=== PATIENT | male | born 1950 | race Caucasian/White ===

== ENCOUNTER 2017-04-25 21:58 | Observation (INO) | payer BC, MEDICARE, OTHER ==
[~2017-04-25 21:58] MED LIST: ATEN-102 PO; CIPR500T4 PO; FLAG500T PO; IBUP800T23 PO; NEXI40CA PO; PRAV10 PO
[2017-04-25 22:01] VITALS: BP 181/89; PULSE 66; RESP 16; TEMP 97.6; O2SAT 97
[2017-04-25 23:09] VITALS: BP 176/89; PULSE 62; RESP 16; O2SAT 95
[2017-04-25] MEDS ORDERED: ATEN50TA PO (23:15)
[2017-04-25] MEDS ORDERED: NEXI40CA PO (23:15)
[2017-04-25] MEDS ORDERED: IBUP800T23 PO (23:15)
[2017-04-25] MEDS ORDERED: PRAV20TA2 PO (23:15)
[2017-04-26 00:32] LABS: AUTOMATED NEUTROPHIL # 7.7 TH/MM3 (1.8-7.7); BASOPHIL % 0.3 % (0.0-2.0); EOSINOPHIL # 0.1 TH/MM3 (0-0.4); EOSINOPHIL % 0.6 % (0.0-4.0); HEMATOCRIT 43.5 % (39.0-51.0); HEMO FLAGS DIFF FINAL; LYMPH % 15.5 % (9.0-44.0); LYMPHOCYTE # 1.6 TH/MM3 (1.0-4.8); MEAN CELL VOLUME 91.2 FL (80.0-100.0); MEAN CORPUSCULAR HEMOGLOBIN 32.7 PG (27.0-34.0); MEAN CORPUSCULAR HGB CONC 35.8 % (32.0-36.0); MONO % 7.3 % (0.0-8.0); NEUT % 76.3 % (16.0-70.0); PLATELET COUNT 222 TH/MM3 (150-450); RED BLOOD COUNT 4.76 MIL/MM3 (4.50-5.90); RED CELL DISTRIBUTION WIDTH 13.4 % (11.6-17.2); WHITE BLOOD COUNT 10.1 TH/MM3 (4.0-11.0)
[2017-04-26 00:44] LABS: ALKALINE PHOSPHATASE 47 U/L (45-117); TOTAL BILIRUBIN ADULT 1.4 MG/DL (0.2-1.0)
[2017-04-26 00:46] LABS: ALT (GPT) 26 U/L (12-78); ANION GAP 10 MEQ/L (5-15); AST (GOT) 32 U/L (15-37); BICARBONATE 28.1 MEQ/L (21.0-32.0); BLOOD UREA NITROGEN 13 MG/DL (7-18); CHLORIDE 92 MEQ/L (98-107); GLOMERULAR FILTRATION RATE 82 ML/MIN (>89); SODIUM (NA) 130 MEQ/L (136-145)
[2017-04-26 00:47] LABS: POTASSIUM 3.9 MEQ/L (3.5-5.1)
[2017-04-26] MEDS ORDERED: IOHEXOL 350 MG/ML 10 ML VIAL (for RAD DIAG) IV ONE (01:20)
[2017-04-26] MEDS ORDERED: ATENOLOL 50 MG TAB PO ONE (01:30)
--- NOTE | 2017-04-26 01:33 | RADRPT ---
EXAM DATE/TIME: 04/26/2017 01:14 [facility] COMPARISON: CT ABDOMEN & PELVIS W CONTRAST, March 23, 2015, 14:26. INDICATIONS : Right sided abdomen pain with vomiting. IV CONTRAST: 90 cc Omnipaque 350 (iohexol) IV ORAL CONTRAST: No oral contrast ingested. RADIATION DOSE: 10.01 CTDIvol (mGy) MEDICAL HISTORY : Hypertension. Gastroesophageal reflux disease. SURGICAL HISTORY : Inguinal hernia repair. ENCOUNTER: Initial ACUITY: 1 day PAIN SCALE: 6/10 LOCATION: Right abdomen TECHNIQUE: Volumetric scanning of the abdomen and pelvis was performed. Using automated exposure control and ad justment of the mA and/or kV according to patient size, radiation dose was kept as low as reasonably achievable to obtain optimal diagnostic quality images. DICOM format image data is available electro nically for review and comparison. FINDINGS: LOWER LUNGS: The visualized lower lungs are clear. LIVER: Homogeneous density. There is a 8 mm cyst in the left lobe liver which is stable. There is no dilati on of the biliary tree. No calcified gallstones. SPLEEN: Normal size without lesion. PANCREAS: Within normal limits. KIDNEYS: Normal in size and shape. There is no mass, stone or hydronephrosis. ADRENAL GLANDS: Within normal limits. VASCULAR: There is no aortic aneurysm. BOWEL/MESENTERY: The stomach, small bowel, and colon demonstrate no acute abnormality. There is no free intraperitone al air or fluid. The appendix is unremarkable. No inflammatory changes. A few scattered diverticula a re noted along the descending and sigmoid colon. ABDOMINAL WALL: Within normal limits. RETROPERITONEUM: There is no lymphadenopathy. BLADDER: No wall thickening or mass. Urinary bladder is somewhat distended. This is unchanged compared to the prior study. REPRODUCTIVE: The prostate is enlarged measuring 5.4 x 4.3 cm. INGUINAL: There is no lymphadenopathy or hernia. MUSCULOSKELETAL: Within normal limits for patient age. Degenerative type changes. CONCLUSION: 1. Stable 8mm hepatic cyst. 2. Diffuse enlargement of the prostate gland. 3. No acute pathology. Ryan Freitas MD on April 26, 2017 at 1:27 Board Certified Radiologist. This report was verified electronically.
--- NOTE | 2017-04-26 02:22 | PD ---
HPI Chief Complaint: Abdominal Pain Time Seen by Provider: 23:44 Travel History International Travel<30 days: No Contact w/Intl Traveler<30days: No Traveled to known affect area: No History of Present Illness HPI This is a 66-year-old male who is known to Dr. Lamar who presents to the emergency department with right upper quadrant abdominal pain that's been going on for 2 days, intermittent, moderate severity, associated with multiple episodes of vomiting. He denies any fevers or chills. He denies any diarrhea. He has been belching. His last bowel movement was earlier today and was normal. He saw Dr. Newton in the office and Dr. Lamar ordered a right upper quadrant ultrasound which was done at [facility]. It demonstrates a small stone in the gallbladder but no evidence of cholecystitis. His pain has continued throughout today so he came to the emergency department. He has a history of, located diverticulitis for which she was treated by Dr. Newton. He never ended up having surgery. He has had 2 hernia repairs in the past. PFSH Past Medical History Arthritis: Yes Heart Rhythm Problems: No Cancer: Yes (SKIN CA) Cardiovascular Problems: Yes High Cholesterol: Yes Chest Pain: No Congestive Heart Failure: No Diminished Hearing: No Endocrine: No GERD: Yes Genitourinary: No Hypertension: Yes Immune Disorder: No Inguinal Hernia: Yes (REPAIRED) Musculoskeletal: No Neurologic: No Psychiatric: No Reproductive: No Respiratory: No Past Surgical History Abdominal Surgery: Yes (LEFT INGUINAL HERNIA REPAIR- [id number]) Other Surgery: Yes (UMBILICAL HERNIA REPAIR-2008, LEFT FOOT SURGERY) Social History Alcohol Use: No Tobacco Use: No Substance Use: No Allergies-Medications (Allergen,Severity, Reaction): Coded Allergies: No Known Allergies (Unverified , 04/25/17) Reported Meds & Prescriptions Reported Meds & Active Scripts Active Reported Pravastatin 20 Mg Tab 20 Mg PO DAILY Ibuprofen 800 Mg Tab 800 Mg PO BID Nexium (Esomeprazole DR) 40 Mg Capdr 40 Mg PO DAILY Atenolol 50 Mg Tab 50 Mg PO HS Review of Systems Except as stated in HPI: all other systems reviewed are Neg Physical Exam Narrative GENERAL:Well appearing, no acute distress SKIN: Focused skin assessment warm and dry. HEAD: Atraumatic. Normocephalic. EYES: Pupils equal and round. No injection or drainage. ENT: Moist mucous membranes NECK: Trachea midline. CARDIOVASCULAR: Regular rate and rhythm. No murmur appreciated. RESPIRATORY: Clear to auscultation. Breath sounds equal bilaterally. GASTROINTESTINAL: Abdomen soft, tender to palpation in the right upper quadrant with no rebound or guarding. MUSCULOSKELETAL: No obvious deformities. NEUROLOGICAL: Awake and alert. No obvious cranial nerve deficits. Moving all extremities. PSYCHIATRIC: Appropriate mood and affect; insight and judgment normal. Data Data Last Documented VS Vital Signs Date Time Temp Pulse Resp B/P Pulse Ox O2 Delivery O2 Flow Rate FiO2 04/25/17 23:09 15 04/25/17 23:09 62 176/89 95 04/25/17 22:01 97.6 Orders Complete Blood Count With Diff (04/25/17 23:55) Comprehensive Metabolic Panel (04/25/17 23:55) Lactic Acid (04/25/17 23:55) ^ Insert Iv (04/25/17 23:55) Ct Abd/Pel W Iv Contrast(Rout) (04/26/17 ) Iohexol 350 Inj (Omnipaque 350 Inj) (04/26/17 01:20) Atenolol (Tenormin) (04/26/17 01:30) Lipase (04/26/17 00:12) Electrocardiogram (04/26/17 ) Troponin I (04/26/17 00:12) Admit Order (Ed Use Only) (04/26/17 02:26) Labs Laboratory Tests Test 04/26/17 00:12 White Blood Count 10.1 TH/MM3 Red Blood Count 4.76 MIL/MM3 Hemoglobin 15.6 GM/DL Hematocrit 43.5 % Mean Corpuscular Volume 91.2 FL Mean Corpuscular Hemoglobin 32.7 PG Mean Corpuscular Hemoglobin 35.8 % Concent Red Cell Distribution Width 13.4 % Platelet Count 222 TH/MM3 Mean Platelet Volume 7.5 FL Neutrophils (%) (Auto) 76.3 % Lymphocytes (%) (Auto) 15.5 % Monocytes (%) (Auto) 7.3 % Eosinophils (%) (Auto) 0.6 % Basophils (%) (Auto) 0.3 % Neutrophils # (Auto) 7.7 TH/MM3 Lymphocytes # (Auto) 1.6 TH/MM3 Monocytes # (Auto) 0.7 TH/MM3 Eosinophils # (Auto) 0.1 TH/MM3 Basophils # (Auto) 0.0 TH/MM3 CBC Comment DIFF FINAL Differential Comment Sodium Level 130 MEQ/L Potassium Level 3.9 MEQ/L Chloride Level 92 MEQ/L Carbon Dioxide Level 28.1 MEQ/L Anion Gap 10 MEQ/L Blood Urea Nitrogen 13 MG/DL Creatinine 0.92 MG/DL Estimat Glomerular Filtration 82 ML/MIN Rate Random Glucose 92 MG/DL Lactic Acid Level 1.1 mmol/L Calcium Level 9.0 MG/DL Total Bilirubin 1.4 MG/DL Aspartate Amino Transf 32 U/L (AST/SGOT) Alanine Aminotransferase 26 U/L (ALT/SGPT) Alkaline Phosphatase 47 U/L Troponin I LESS THAN 0.02 NG/ML Total Protein 7.4 GM/DL Albumin 4.2 GM/DL Lipase 99 U/L [facility] Medical Decision Making Medical Screen Exam Complete: Yes Emergency Medical Condition: Yes Interpretation(s) Afebrile, no tachycardia, hypertensive No leukocytosis Mild hyponatremia Total bilirubin is 1.4 Lipase is normal Lactic acid is 1.1 Last 24 hours Impressions Abdomen/Pelvis CT 04/26/17 0000 Signed Impressions: Service Date/Time: Monday, April 26, 2017 01:14 - CONCLUSION: 1. Stable 8mm hepatic cyst. 2. Diffuse enlargement of the prostate gland. 3. No acute pathology. Ryan Freitas MD Differential Diagnosis Cholelithiasis, cholecystitis, choledocholithiasis, bowel obstruction, pancreatitis Narrative Course This is a 66-year-old male who presents to the emergency department with right upper quadrant abdominal pain. He's been vomiting for 2 days. He is tender in the right upper abdomen. Labs are obtained which demonstrate no leukocytosis but his total bilirubin is slightly elevated from prior. He did have an ultrasound as an outpatient demonstrating a small gallstone but no cholecystitis. CT was performed in the emergency department which was reassuring. I also checked an EKG and troponin which were reassuring. I suspect his symptoms are biliary. He may benefit from a HIDA scan. Plan for observation, symptomatic control and evaluation by Dr. Lamar in the morning. Case was discussed with Dr. Goodman this evening. Physician Communication Physician Communication Discussed with Dr. Goodman Diagnosis Primary Impression: Abdominal pain Qualified Code: R10.11 - Right upper quadrant abdominal pain Admitting Information Admitting Physician Requests: Lillie Victor MD Apr 26, 2017 02:22
[2017-04-26 02:33] VITALS: BP 134/75; PULSE 67; RESP 16; O2SAT 97
[2017-04-26] MEDS ORDERED: HYDROmorphone HCL PF 1 MG/ML VIAL IV PUSH ONE (03:15)
[2017-04-26] MEDS: SODIUM CHLOR 0.9% 1000 ML INJ 1,000 ML IV SCH ×3 (04:50→20:31)
[2017-04-26 05:54] VITALS: BP 144/79; PULSE 51; RESP 18; TEMP 97.8; O2SAT 97
[2017-04-26 07:32] VITALS: BP 143/87; PULSE 52; RESP 20; TEMP 98.6; O2SAT 97
[2017-04-26] MEDS ORDERED: KETOROLAC TROMETHAMINE 30 MG/ML (IVP) VIAL IV PUSH PRN (08:15)
[2017-04-26] MEDS ORDERED: HYDROmorphone HCL PF 1 MG/ML VIAL IV PUSH PRN (08:15)
[2017-04-26] MEDS ORDERED: SODIUM CHLORIDE 0.9% FLUSH 10 ML FLUSH IV FLUSH PRN (08:15)
[2017-04-26] MEDS: PANTOPRAZOLE SODIUM 40 MG VIAL IV SCH (08:46)
[2017-04-26] MEDS: SODIUM CHLORIDE 0.9% FLUSH 10 ML FLUSH IV FLUSH SCH ×2 (08:46→20:23)
[2017-04-26] MEDS: ACETAMINOPHEN 1000 MG/100 ML VIAL IV SCH ×3 (08:46→20:32)
--- NOTE | 2017-04-26 08:46 | EKG ---
Date Performed: 04/26/2017 Time Performed: 02:04:10 PTAGE: 66 years EKG: Sinus rhythm NORMAL ECG PREVIOUS TRACING : 03/23/2015 16.48 DOCTOR: Misael Brooks Interpretating Date/Time 04/26/2017 08:44:21
--- NOTE | 2017-04-26 09:00 | MH ---
cc: AUGUSTINE LAU M.D. DATE OF ADMISSION: 04/26/2017 REASON FOR ADMISSION Right upper quadrant pain, nausea with emesis. BRIEF HISTORY This is a very pleasant 66-year-old gentleman, well-known to me from a couple years ago when he was admitted with diverticulitis. He was treated nonoperatively with antibiotics and was able to recover. He was doing well until this weekend. He called me on Monday indicating that he was having right upper quadrant pain and thought maybe he needed antibiotics for recurrent diverticulitis. The right upper quadrant pain I explained to him was atypical for diverticular disease and I asked that he come to see me in the office on Monday. I saw him in the office on Monday and indeed his pain was right subcostal, worrisome more for gallbladder disease than diverticular disease and an ultrasound was ordered. The ultrasound demonstrated just a single stone without gallbladder wall thickening or pericholecystic fluid or findings suspicious for cholecystitis that would explain the severity of his discomfort. Unfortunately, he continued to have significant pain, nausea with emesis, was unable to tolerate oral intake and I instructed him to come to the emergency department. He was seen by Dr. Ramos in the emergency department and found to have a white count of 10.1 with 76% neutrophils. Hemoglobin was 15.6, platelet count 222, potassium was 3.9, creatinine 0.92, total bilirubin slightly elevated at 1.4 but AST, ALT and alkaline phosphatase were normal, lipase was 99, lactic acid was 1.1. He was a little hyponatremic with a sodium of 130 and a chloride of 92. He had a CT scan of the abdomen and pelvis which demonstrated no acute inflammatory changes. He has a stable 8 mm hepatic cyst and diffuse enlargement of his prostate gland but certainly no findings were worrisome for an acute problem that would explain his symptoms. He was admitted for observation. ALLERGIES He has no known drug allergies. PAST MEDICAL HISTORY Past with history significant for: 1. Arthritis. 2. Skin cancers. 3. High cholesterol. 4. Acid reflux disease. 5. Hypertension. PAST SURGICAL HISTORY His previous surgeries include: 1. Left inguinal hernia repair. 2. Umbilical hernia repair. 3. Left foot surgery. MEDICATIONS Routine medications include: 1. Pravastatin. 2. Ibuprofen. 3. Nexium. 4. Atenolol. REVIEW OF SYSTEMS His review of systems is significant for the severe pain, nausea and emesis. PHYSICAL EXAMINATION GENERAL: On physical examination he is a well-developed, well-nourished man who is in mild distress. He is pleasant and cooperative with the exam. He has had no emesis since his arrival to the hospital. He did throw up on the way, however. VITAL SIGNS: His temperature is 98.6, pulse 52, respiratory rate 20, blood pressure 143/87. His O2 sats 97%. HEENT: Normocephalic, atraumatic. His pupils are 3 round and reactive to light. Sclerae are anicteric. His oropharynx is clear without mucosal lesions. He has upper full denture plate. He is a bearded man. NECK: His neck is supple without adenopathy. He has midline trachea, no jugular venous distension. LUNGS: Lung sounds are clear and equal anteriorly bilaterally. HEART: Heart sounds are regular without murmur, rub or gallop. ABDOMEN: His abdomen is soft. It is nondistended. He is tender in the right midabdomen to the right subcostal position without rebound or guarding. He has a healed supraumbilical small transverse incision and left groin incision from hernia surgeries. He has normal bowel sounds. No abdominal bruits. EXTREMITIES: His extremities show no cyanosis, clubbing, edema. He has equal radial and dorsalis pedis pulses. NEUROLOGIC: He is awake, alert, oriented. He has equal bilateral crime scene investigator strength and no gross motor sensory deficit. LABORATORY AND IMAGING STUDIES As above. ASSESSMENT A 66-year-old gentleman with right upper quadrant pain, nausea with emesis. He has had an ultrasound which shows a single small gallstone without inflammatory changes of the gallbladder to explain his symptoms. CT abdomen and pelvis again does not show biliary changes consistent with his pain, to explain his pain. No other findings on CT scan demonstrate that. I discussed this with him. Due to location of his pain and continued belief that the possibility that biliary etiology is possible, we have ordered a HIDA scan to test the function of his gallbladder. If this ends up being negative we will get a GI consultation to consider upper endoscopy. The patient was provided medications of proton pump inhibitor and anti-nausea medicine, nonnarcotic and narcotic pain medications. We will follow up on him later today. He understands the plan and is agreeable. MD MARITA Barr/CHRISTINA /8:20 AM /8:42 AM [facility]
[2017-04-26] MEDS ORDERED: SINCALIDE 5 MCG/5 ML VIAL IV ONE (10:24)
[2017-04-26 11:35] VITALS: BP 131/81; PULSE 52; RESP 18; TEMP 98.7; O2SAT 93
[2017-04-26] MEDS: MORPHINE SULFATE 4 MG/ML INJ IV PRN ×2 (12:12→20:27)
--- NOTE | 2017-04-26 12:18 | RADRPT ---
EXAM DATE/TIME: 04/26/2017 09:49 [facility] COMPARISON: No previous studies available for comparison. INDICATIONS : Abdominal pain. DOSE: 4.1 mCi Tc99m Mebrofenin IV MEDICATION: 1.8 mcg Cholecystokinin IV; No symptomatic response. Cholecystokinin was administered by slow infusion over 8 minutes beginning at 45 minutes. MEDICAL HISTORY : Hypertension. Hypercholesterolemia. Gastroesophageal reflux disease. SURGICAL HISTORY : Foot. ENCOUNTER: Initial ACUITY: 1 day PAIN SCALE: 5/10 LOCATION: Right upper quadrant TECHNIQUE: Following the intravenous administration of radiotracer, dynamic sequential image were performed with continuous acquisition. Time-activity curves were generated. FINDINGS: HEPATIIC KINETICS: There is prompt uptake of radiotracer in the liver. No focal defects are seen. There is normal rate of washout from the hepatic parenchyma. BILIARY CLEARANCE: Activity is first seen in the extrahepatic biliary system at 5 minutes. There is normal excretion in to the small bowel. GALLBLADDER: Activity is first seen in the gallbladder at 10 minutes. POST CHOLECYSTOKININ: After Cholecystokinin administration, there continued increased activity in the gallbladder. Common bile duct kinetics are normal and there is no evidence of biliary obstruction. BILIARY ENTERIC REFLUX: None observed. CLINICAL: The patient was asymptomatic after Cholecystokinin administration. CONCLUSION: 1. Activity in the gallbladder confirms patency of the cystic duct. 2. Progressive activity in the gallbladder despite asymptomatic administration of CCK. Findings are c onsistent with significant functional gallbladder disorder. Cameron Rhodes MD on April 26, 2017 at 12:01 Board Certified Radiologist. This report was verified electronically.
[2017-04-26] MEDS: PRAVASTATIN SOD 20 MG TAB PO SCH (13:56)
[2017-04-26 15:52] VITALS: BP 162/78; PULSE 53; RESP 19; TEMP 97.7; O2SAT 98
--- NOTE | 2017-04-26 16:21 | HHI.PR ---
Subjective Subjective Notes Morphine helped, as did ofirmev. Thinks he may need morphine again soon. No pain with CCK during HIDA Objective Vitals/I&O Vital Signs Date Time Temp Pulse Resp B/P Pulse Ox O2 Delivery O2 Flow Rate FiO2 04/26/17 15:52 97.7 53 19 162/78 98 Labs Laboratory Tests Test 04/26/17 00:12 White Blood Count 10.1 Red Blood Count 4.76 Hemoglobin 15.6 Hematocrit 43.5 Mean Corpuscular Volume 91.2 Mean Corpuscular Hemoglobin 32.7 Mean Corpuscular Hemoglobin 35.8 Concent Red Cell Distribution Width 13.4 Platelet Count 222 Mean Platelet Volume 7.5 Neutrophils (%) (Auto) 76.3 Lymphocytes (%) (Auto) 15.5 Monocytes (%) (Auto) 7.3 Eosinophils (%) (Auto) 0.6 Basophils (%) (Auto) 0.3 Neutrophils # (Auto) 7.7 Lymphocytes # (Auto) 1.6 Monocytes # (Auto) 0.7 Eosinophils # (Auto) 0.1 Basophils # (Auto) 0.0 CBC Comment DIFF FINAL Differential Comment Sodium Level 130 Potassium Level 3.9 Chloride Level 92 Carbon Dioxide Level 28.1 Anion Gap 10 Blood Urea Nitrogen 13 Creatinine 0.92 Estimat Glomerular Filtration 82 Rate Random Glucose 92 Lactic Acid Level 1.1 Calcium Level 9.0 Total Bilirubin 1.4 Aspartate Amino Transf 32 (AST/SGOT) Alanine Aminotransferase 26 (ALT/SGPT) Alkaline Phosphatase 47 Troponin I LESS THAN 0.02 Total Protein 7.4 Albumin 4.2 Lipase 99 Abdomen: Non-distended, Other (tender R subcostal.) A/P Assessment and Plan RUQ pain, N/V. Gallstone. No emptying of GB in response to CCK. I d/w pt and and daughter, option of proceeding with Lap mamie possible open due to the history, PE and only abnormal objective findings on US and HIDA. They wish to proceed. Surgery scheduled for 729. Preop abx and consent ordered. Jean Paul Lamar MD Apr 26, 2017 16:21
[2017-04-26] MEDS ORDERED: metroNIDAZOLE 500 MG INJ 100 ML IV SCH (16:30)
[2017-04-26] MEDS ORDERED: ceFAZolin 2 GM PREMIX 50 ML IV SCH (16:30)
[2017-04-26 20:21] VITALS: BP 147/96; PULSE 52; RESP 18; TEMP 97.2; O2SAT 96
[2017-04-26] MEDS ORDERED: ATENOLOL 50 MG TAB PO SCH (21:00)
[2017-04-27 00:05] VITALS: BP 131/76; PULSE 50; RESP 18; TEMP 97.8; O2SAT 97
[2017-04-27] MEDS: MORPHINE SULFATE 4 MG/ML INJ IV PRN (01:05)
[2017-04-27] MEDS: ACETAMINOPHEN 1000 MG/100 ML VIAL IV SCH ×2 (03:03→09:14)
[2017-04-27] MEDS: SODIUM CHLOR 0.9% 1000 ML INJ 1,000 ML IV SCH (04:56)
[2017-04-27 06:27] VITALS: BP 142/81; PULSE 54; RESP 18; TEMP 98; O2SAT 95
[2017-04-27] MEDS ORDERED: BUPIVACAINE/EPINEPHRINE 0.5% PF 10 ML VIAL ONE (06:59)
[2017-04-27] MEDS ORDERED: fentaNYL CITRATE 250 MCG/5 ML AMP ONE (07:13)
[2017-04-27] MEDS ORDERED: MIDAZOLAM HCL 2 MG/2 ML VIAL ONE (07:13)
[2017-04-27] MEDS ORDERED: SUGAMMADEX SODIUM 200 MG/2 ML VIAL IV PUSH ONE ×2 (07:14)
[2017-04-27] MEDS ORDERED: DEXAMETHASONE SOD PHOS 4 MG/ML VIAL ONE ×2 (07:14→13:06)
[2017-04-27] MEDS ORDERED: PROPOFOL 200 MG/20 ML AMP IV ONE (07:51)
[2017-04-27] MEDS ORDERED: NEOSTIGMINE 3 MG/3 ML SYR IV ONE (07:52)
[2017-04-27] MEDS ORDERED: ePHEDrine/NS 25 MG/5 ML SYR IV ONE (07:52)
[2017-04-27] MEDS ORDERED: LACTATED RINGER'S 1000 ML INJ 1,000 ML IV ONE (07:52)
[2017-04-27] MEDS ORDERED: ONDANSETRON HCL 4 MG/2 ML VIAL IV PUSH ONE (07:52)
--- NOTE | 2017-04-27 08:50 | PD.OP ---
Operative Report Date of Surgery: Apr 27, 2017 Preoperative Diagnosis: gallstone, abnormal HIDA scan, RUQ pain, N/V Postoperative Diagnosis: cholecystitis Procedure: lap mamie Anesthesia: general Surgeon: Jean Paul Lamar Hospital Mortician(s): Aura Coffman MS3 Operation and Findings: GB, distended, Inflamed, omental adhesions EBL 25 ml. Jean Paul Lamar MD Apr 27, 2017 08:50
[2017-04-27] MEDS ORDERED: DO NOT ADM ANY ANTICOAGULANT DRUGS PRN (08:52)
[2017-04-27] MEDS ORDERED: MAGNESIUM HYDROXIDE SUSP 30 ML CUP PO PRN (09:00)
[2017-04-27] MEDS ORDERED: Post-op Orders (for Pharmacy) MISC XX ONE (09:00)
[2017-04-27] MEDS: PRAVASTATIN SOD 20 MG TAB PO SCH (09:00)
[2017-04-27] MEDS ORDERED: SODIUM CHLORIDE 0.9% FLUSH 10 ML FLUSH IV FLUSH SCH (09:00)
[2017-04-27] MEDS ORDERED: SODIUM CHLORIDE 0.9% FLUSH 10 ML FLUSH IV FLUSH PRN (09:00)
[2017-04-27] MEDS ORDERED: HYDR-3533 PO (09:00)
--- NOTE | 2017-04-27 09:03 | HHI.DS ---
Discharge Summary Admission Date Apr 26, 2017 at 02:27 Discharge Date: Apr 27, 2017 Admitting Diagnosis abdominal pain Procedures lap mamie Brief History 66 year old with RUQ pain, N/V. Gallstone on US. Admitted for persistent pain, N /V. Workup inconclusive, CT without inflammatory change, HIDA scan abnormal, no emptying in response to kinevac. CBC/BMP: 04/26/17 0012 04/26/17 0012 Significant Findings Laboratory Tests Test 04/26/17 00:12 Neutrophils (%) (Auto) 76.3 % (16.0-70.0) Sodium Level 130 MEQ/L (136-145) Chloride Level 92 MEQ/L (98-107) Estimat Glomerular Filtration 82 ML/MIN (>89) Rate Total Bilirubin 1.4 MG/DL (0.2-1.0) Troponin I LESS THAN 0.02 NG/ML (0.02-0.05) PE at Discharge steristrips intact. Hospital Course admitted, underwent CT and HIDA scan. Had lap mamie. Home when tolerating po well, po pain meds. Pt Condition on Discharge: Good Discharge Disposition: Discharge Home Discharge Instructions DIET: Follow Instructions for: As Tolerated, No Restrictions Additional Diet Instructions: stay hydrated Activities you can perform: Shower Only-No Bath Activities to Avoid: Strenuous Activity Jean Paul Lamar MD Apr 27, 2017 09:03
[2017-04-27] MEDS: PANTOPRAZOLE SODIUM 40 MG VIAL IV SCH (09:10)
[2017-04-27] MEDS ORDERED: *ONDANSETRON 4 MG VIAL PERIprocedural Use ONLY ONE (10:28)
[2017-04-27 11:05] VITALS: BP 131/69; PULSE 78; RESP 16; TEMP 97.6; O2SAT 93
[2017-04-27] MEDS ORDERED: ONDANSETRON HCL 4 MG/2 ML VIAL IV PRN (12:00)
[2017-04-27] MEDS ORDERED: SODIUM CHLOR 0.9% 1000 ML INJ 1,000 ML IV SCH (12:00)
[2017-04-27] MEDS ORDERED: ACETAMINOPHEN/HYDROcodone 325 MG/5 MG TAB PO PRN ×2 (12:00)
[2017-04-28] MEDS ORDERED: ENOXAPARIN SODIUM 40 MG/0.4 ML SYRINGE SQ SCH (08:00)
--- NOTE | 2017-04-28 11:26 | MP ---
cc: AUGUSTINE LAU M.D. DATE OF SURGERY 04/27/2017 PREOPERATIVE DIAGNOSIS Right upper quadrant pain, nausea, vomiting, gallstone and abnormal HIDA scan. POSTOPERATIVE DIAGNOSIS Cholecystitis PROCEDURE Laparoscopic cholecystectomy SURGEON Dr. Augustine Lau MUSEUM EXHIBIT TECHNICIAN Aura Coffman, MS-3 ANESTHESIA General INDICATIONS This is a very pleasant 66-year-old gentleman otherwise pretty healthy who developed severe right upper quadrant pain associated with nausea and vomiting. Ultrasound only demonstrated a single gallstone without gallbladder wall thickening or pericholecystic fluid. The pain, nausea and vomiting progressed and he was admitted to the hospital for further evaluation where a CT scan was done which did not show any pericholecystic inflammatory changes and no other etiology was discovered. His white count was normal. He had a slight left shift and liver function tests were essentially normal. The patient had a HIDA scan which showed the gallbladder filled with radionuclide, but did not empty at all in response to Kinevac indicating probable cholecystitis. Plans were made for laparoscopic cholecystectomy. INTRAOPERATIVE FINDINGS Distended gallbladder with inflammation, neovascularity consistent with cholecystitis. Omental adhesions consistent with cholecystitis. Gallbladder removed and sent to pathology. ESTIMATED BLOOD LOSS 25 mL DESCRIPTION OF PROCEDURE IN DETAIL The patient identified as Abhijit Vera, taken to the operating room, placed in the supine position. Sequential compression devices were placed on bilateral lower extremities. Following induction of adequate general endotracheal anesthesia, the patient's abdomen was prepped and draped in the usual sterile fashion with Betadine. A time-out procedure was performed. Following completion of the time-out procedure to everyone's satisfaction within the room, a 0.5% Marcaine with epinephrine was placed at each incision site. An infraumbilical 2 cm incision was carried out with a scalpel, dissection continued posteriorly to the level of the midline fascia. The base of the umbilicus was retracted anteriorly. The fascia was incised in a vertical fashion allowing for entry into the peritoneal cavity with surgeon's finger. The applied medical balloon Ray trocar was placed in the peritoneal cavity, its balloon inflated with CO2 insufflation to a level of 15 mmHg ensued. The patient was placed in a reverse Trendelenburg position and two upper abdominal 5 mm trocars were placed in the peritoneal cavity direct laparoscopic view after incision in the skin with a scalpel. The gallbladder was immediately identified, had some color changes in the wall, potentially early gangrenous type discolorations. It was very distended. It could not be grasped. A third 5 mm trocar was then placed in the right lateral abdomen under direct laparoscopic view after incision in the skin with a scalpel to assist with the Laney-Flex liver retractor and retraction of tissue for improve visualization. The gallbladder was decompressed using the harmonic scalpel and the suction device. The gallbladder was then removed from the gallbladder fossa in a dome down technique using the harmonic scalpel. Inflammatory changes previously discussed were identified. The cystic artery was divided with the harmonic scalpel. The cystic duct was isolated from surrounding tissues, ligated once distally with 0-PDS Endoloop and the gallbladder amputated from the cystic duct at its junction with the cystic duct. The gallbladder was placed into an Endo-retrieval bag and removed through the infraumbilical fascial port incision site and passed off field for pathologic evaluation. The right upper quadrant was copiously irrigated with saline. All bilious and bloody drainage was suctioned out. The cystic duct ligature remained intact. The cystic arterial stump was hemostatic. There is a little irritation in the gallbladder fossa and one gram of James absorbable hemostatic agent was placed on the gallbladder fossa. No other intra-abdominal abnormality was identified on a brief laparoscopic survey. There was a very thin pericardium and very thin diaphragm muscle adjacent to the pericardium was noted. Photographs were taken intraoperatively for discussion with family postoperatively. Remaining local anesthetic was placed in the subdiaphragmatic position. Trocars were removed under direct visualization. There was no evidence of bleeding from trocar sites. The abdomen was actively desufflated through the infraumbilical port which was then removed. The infraumbilical fascial incision was closed with interrupted 0 Vicryl sutures. Port sites were irrigated copiously with saline. Skin incisions were approximated with 4-0 Monocryl subcuticular sutures. Dressings were applied with Mastisol and half-inch brown Steri-Strips. The patient tolerated procedure without apparent complication. Sponge, needle and instrument counts were correct at the end of the case. MD MARITA Barr/VIRGIL /8:57 AM /11:21 AM
== END 2017-04-27 14:32 | disposition home or self-care (01) ==
LOC: NEPE 21:58 → NEDA 04-26 02:27 → NEPGCP 04-26 05:00
PROVIDERS: ADMIT Surgery Trauma Surgery; ATTEND Surgery Trauma Surgery
PROC: 0FT44ZZ Resection of Gallbladder, Percutaneous Endoscopic Approach (ICD-10-PCS; principal; 2017-04-25)
DX: K81.1 Chronic cholecystitis (principal); M19.90 Unspecified osteoarthritis, unspecified site; K21.9 Gastro-esophageal reflux disease without esophagitis; E78.00 Pure hypercholesterolemia, unspecified; I10 Essential (primary) hypertension; N40.0 Benign prostatic hyperplasia without lower urinary tract symptoms; K76.89 Other specified diseases of liver; Z79.899 Other long term (current) drug therapy; Z85.828 Personal history of other malignant neoplasm of skin
CPT/HCPCS: 00790; 47562; 74177; 78227; 80053; 83605; 83690; 84484; 85025; 88304; 93005; 99285; A9537; C9113; G0378; J0131; J0690; J1100; J1170; J1885; J2250; J2270; J2405; J2710; J2805; J3010; J7030; J7120; Q9967